=== PATIENT | female | born 1995 | race American Indian/Alaskan Native ===

== ENCOUNTER 2019-03-07 17:20 | Emergency (ER) | payer OTHER ==
[~2019-03-07] VITALS: Ht 160 cm; Wt 77.6 kg
== END 2019-03-07 20:23 | disposition home or self-care (01) ==
LOC: ER 17:20
DX: J32.8 Other chronic sinusitis (principal)

== ENCOUNTER 2019-06-10 13:37 | Outpatient (CLI) | payer OTHER ==
[2019-06-11] MEDS ORDERED: TUSSI-PRES LIQ474 ML PO (12:46)
[2019-06-11] MEDS ORDERED: ZITHROMAX TRI-500 MG PO (12:46)
== END 2019-06-12 07:45 | disposition home or self-care (01) ==
LOC: OBS/DEL 13:37
DX: O26.893 Other specified pregnancy related conditions, third trimester (principal); B96.0 Mycoplasma pneumoniae [M. pneumoniae] as the cause of diseases classified elsewhere

== ENCOUNTER 2019-07-12 11:11 | Outpatient (CLI) | payer OTHER ==
[~2019-07-12 11:11] MED LIST: TUSSI-PRES LIQ474 ML PO; ZITHROMAX TRI-500 MG PO
== END 2019-07-12 11:57 | disposition home or self-care (01) ==
LOC: LAB 11:11
DX: Z34.80 Encounter for supervision of other normal pregnancy, unspecified trimester (principal)

== ENCOUNTER 2019-07-19 11:36 | Inpatient (IN) | payer OTHER ==
[~2019-07-19] VITALS: Ht 160 cm; Wt 85.3 kg
[2019-08-05] MEDS ORDERED: PRENATAL + DHA1 EAC1 PO (06:31)
== END 2019-08-08 11:34 | disposition home or self-care (01) | DRG 785 ==
LOC: OB/GYN 08-05 06:10 → O/R 08-05 06:10 → OB/GYN 08-05 07:00
PROVIDERS: ADMIT Specialist
PROC: 0UT64ZZ Resection of Left Fallopian Tube, Percutaneous Endoscopic Approach (ICD-10-PCS; 2019-08-05)
PROC: 4A1HXFZ Monitoring of Products of Conception, Cardiac Rhythm, External Approach (ICD-10-PCS; 2019-08-05)
PROC: 3E033VJ Introduction of Other Hormone into Peripheral Vein, Percutaneous Approach (ICD-10-PCS; 2019-08-05)
PROC: 10D00Z1 Extraction of Products of Conception, Low, Open Approach (ICD-10-PCS; principal; 2019-08-05 07:00)
DX: O34.211 Maternal care for low transverse scar from previous cesarean delivery (principal); Z3A.39 39 weeks gestation of pregnancy; Z37.0 Single live birth